=== PATIENT | female | born 1955 ===

== ENCOUNTER → 2022-07-27 | Day surgery (SDC) | payer OTHER ==
[~2022-07-27] MED LIST: CALTRATE 600+D1 EAC1 PO; FISH OIL 1,0001 EAC1 PO
== END | disposition home or self-care (01) ==
LOC: ADM 07-26 08:15 → CIR.AMB 06:00
PROVIDERS: ATTEND Surgery Surgery of the Hand
DX: M67.843 Other specified disorders of tendon, right hand (principal); J45.909 Unspecified asthma, uncomplicated; Z20.822 Contact with and (suspected) exposure to COVID-19